=== PATIENT | female | born 1985 | race Caucasian/White ===

== ENCOUNTER → 2016-05-27 | Outpatient (CLI) | payer BC ==
[~2016-05-27] MED LIST: ACETAMINOPHEN PO; IBUPROFEN800 MG PO; NAPROSYN500 MG PO; SYNTHROID75 MCG
--- NOTE | ~2016-05-27 | US128 ---
[id number] [address] [address] [id number] O MR#: [id number] #: [id number] NAME: CHRISTIN AUGUSTIN : 1985 SEX: F STUDY DATE/TIME: 05/27/2016 10:16 UNIT: [facility] ROOM: STUDY DESCRIPTION: Thyroid Attending Physician: Sunitha Thompson A.P.R.N. Referring Physician: Sunitha Thmopson A.P.R.N. Ordering Physician: Physician Non-Staff Primary Care Physician: Corie Swartz M.D. MEDICAL IMAGING REPORT This report is preliminary unless electronic signature is present. EXAM Thyroid ultrasound, 05/27/2016. HISTORY Hypothyroid for 4 years. Enlarged thyroid on physical examination and neck fullness for 1 month. FINDINGS The right thyroid lobe measured 3.9 cm x 1.2 cm x 1.5 cm, while the left lobe measured 3.7 cm x 1.1 cm x 1.2 cm. The isthmus measured 2 mm in the AP direction. Both thyroid lobes are heterogeneous in echotexture and demonstrate no discrete cystic or solid nodules. There are no masses extrinsic to the thyroid. Normal blood flow is seen throughout both thyroid lobes. IMPRESSION Diffusely heterogeneous thyroid demonstrating no discrete cystic or solid nodules. Dictated by... Dg Randhawa M.D. THIS IS AN ELECTRONICALLY VERIFIED REPORT Dg Randhawa M.D. at 05/28/2016 8:29 AM AFSHAN/jamila TD: 05/27/2016 14:17 JOB #: [id number] MEDICAL IMAGING REPORT Page 1 of 1
== END | disposition home or self-care (01) ==
LOC: SGUS 10:00
DX: E07.89 Other specified disorders of thyroid (principal)
CPT/HCPCS: 76536